=== PATIENT | male | born 1975 | race Caucasian/White ===

== ENCOUNTER 2017-12-21 14:14 | Inpatient (IN) | END 2017-12-28 19:20 | disposition home health service (06) | DRG 100 ==

== ENCOUNTER 2019-05-16 15:33 | Inpatient (IN) | payer OTHER ==
[2019-05-16] VITALS (12 sets, daily range): BP systolic 106–143; BP diastolic 82–96; PULSE 72–122; RESP 12–21; Ht 172.7 cm; Wt 50.1 kg
[~2019-05-16] VITALS: Ht 172.7 cm; Wt 50.1 kg
[~2019-05-16 15:33] MED LIST: ACET100V3 NEB; ASC500 GTB; BACL20TA G-TUBE; BACL20TA GTB; DOCU50LI11 G-TUBE; GABA250S2 G-TUBE; GABA250S2 GTB; IBUP-1541 G-TUBE; IPRA3AMP29 INHALATION; LORA-441 PO; LORA10CA G-TUBE; LORA10TA3 GTB; LORA1TAB GTB; MAGN400O19 G-TUBE; MORP-58 PEG; MORP10DI10 GTB; MORP10DI10 SL; MUCO4 NEB; MUPI22OI2 SUBDERMAL; NYST15CR28 TOP; OMEP20CA17 GTB; PHEN32.46 GTB; PHEN32.46 PO; RANI15SY GTB; RISP0.2553 G-TUBE; RISP1TAB3 GTB; SAN30GM TOP; TIZA4TAB2 G-TUBE; TIZA4TAB2 GTB; TOLN45PO2 SUBD; TOLT2TAB5 GTB; TRAZ150T65 G-TUBE; TRAZ150T65 GTB; ZINC220C5 GTB; ZONI100C48 G-TUBE; ZONI100C48 GTB; [UNRECOGNIZED DRUG - CODE] IH; [UNRECOGNIZED DRUG - CODE] SUBDERMAL
[2019-05-16] MEDS ORDERED: SODIUM CHLORIDE 0.9% 1L BAG IV* STA (15:44)
[2019-05-16] MEDS ORDERED: VANCOMYCIN 1 GM (PMX) 250 ML IVPB ONE (16:00)
[2019-05-16] MEDS ORDERED: AZTREONAM 1 GM/NS (PMX) 50 ML IVPB ONE (16:00)
[2019-05-16] MEDS ORDERED: ONDANSETRON 4 MG INJ IV PRN ×2 (18:00→19:30)
[2019-05-16] MEDS ORDERED: morphine 2 MG INJ IV PRN (19:30)
[2019-05-16] MEDS ORDERED: NACL 0.9% 3 ML SYG IV SCH (19:30)
[2019-05-16] MEDS ORDERED: TIZANIDINE 4 MG TAB GTB PRN (19:30)
[2019-05-16] MEDS ORDERED: OMEPRAZOLE GTB PRN (19:30)
[2019-05-16] MEDS ORDERED: LACTATED RINGER'S 1,000 ML IV ONE (20:00)
[2019-05-16] MEDS ORDERED: VANCOMYCIN IV PER PHARMACY XX SCH (20:00)
[2019-05-16] MEDS ORDERED: LANSOPRAZOLE (SOLTAB) 30 MG TAB GTB PRN (20:30)
[2019-05-16] MEDS: IPRATROPIUM (NEB) 0.5 MG/2.5 ML AMP INH SCH (21:00)
[2019-05-16] MEDS ORDERED: PHENOBARBITAL 32.4 MG TAB GTB SCH ×3 (21:30→22:00)
[2019-05-16] MEDS: MUPIROCIN 2% 22 GM OINT TOP SCH (21:34)
[2019-05-16] MEDS: TOLTERODINE 2 MG TAB GTB SCH (21:34)
[2019-05-16] MEDS: GABAPENTIN 300 MG/6 ML GTB SCH (21:34)
[2019-05-16] MEDS: SOD CHLORIDE 0.9% 1,000 ML IV SCH (21:35)
[2019-05-16] MEDS: DOCUSATE SODIUM 10 MG/ML (10ML CUP) GTB SCH (21:39)
[2019-05-16] MEDS: BACLOFEN 10 MG TAB GTB SCH (21:39)
[2019-05-16] MEDS: LORAZEPAM 0.5 MG TAB GTB SCH (23:01)
[2019-05-16] MEDS: PHENOBARBITAL 32.4 MG TAB GTB SCH (23:50)
[2019-05-17] VITALS (95 sets, daily range): BP systolic 71–140; BP diastolic 41–88; PULSE 0–104; RESP 10–76
[2019-05-17] MEDS ORDERED: HYDROmorphONE 0.5 MG/0.5 ML SYG IV STA (04:09)
[2019-05-17] MEDS: AZTREONAM 1 GM/NS (PMX) 50 ML IVPB SCH ×2 (04:28→08:54)
[2019-05-17] MEDS: BACLOFEN 10 MG TAB GTB SCH ×2 (05:48→15:03)
[2019-05-17] MEDS: VANCOMYCIN 750 MG (PMX) 250 ML IVPB SCH ×2 (05:48→18:33)
[2019-05-17] MEDS ORDERED: MAGNESIUM SULFATE 3 GM in DEXTROSE 5% 100 ML IVPB ONE (07:30)
[2019-05-17] MEDS: GABAPENTIN 300 MG/6 ML GTB SCH ×2 (08:38→15:01)
[2019-05-17] MEDS: TOLTERODINE 2 MG TAB GTB SCH ×2 (08:39→21:53)
[2019-05-17] MEDS: LORAZEPAM 0.5 MG TAB GTB SCH ×2 (08:39→21:52)
[2019-05-17] MEDS: LORATADINE 10 MG TAB GTB SCH (08:39)
[2019-05-17] MEDS: MUPIROCIN 2% 22 GM OINT TOP SCH ×2 (08:40→21:55)
[2019-05-17] MEDS: ENOXAPARIN 40 MG/0.4 ML SYG SC SCH (08:41)
[2019-05-17] MEDS: DOCUSATE SODIUM 10 MG/ML (10ML CUP) GTB SCH ×2 (08:42→21:53)
[2019-05-17] MEDS ORDERED: PHENOBARBITAL 32.4 MG TAB GTB SCH (09:00)
[2019-05-17] MEDS: IPRATROPIUM (NEB) 0.5 MG/2.5 ML AMP INH SCH (09:00)
[2019-05-17] MEDS ORDERED: MAGNESIUM SULFATE 2 GM/50 ML 50 ML IVPB ONE (09:30)
[2019-05-17] MEDS: SOD CHLORIDE 0.9% 1,000 ML IV SCH (10:29)
[2019-05-17] MEDS: PHENOBARBITAL 32.4 MG TAB GTB SCH ×2 (10:42→21:54)
[2019-05-17] MEDS: IPRATROPIUM (HFA) 12.9 GM INHALER INH SCH ×2 (13:20→17:22)
[2019-05-17] MEDS ORDERED: MEROPENEM 1 GM/50ML(PMX) 50 ML IVPB SCH (13:30)
[2019-05-17] MEDS ORDERED: AMIKACIN IV PER PHARMACY XX SCH (14:00)
[2019-05-17] MEDS ORDERED: LACTATED RINGER'S 1,000 ML IV ONE (16:00)
[2019-05-17] MEDS ORDERED: AMIKACIN 750 MG in SOD CHLORIDE 0.9% 100 ML IVPB SCH (16:00)
[2019-05-17] MEDS: ZONISAMIDE 100 MG CAP GTB SCH ×2 (16:30→21:54)
[2019-05-17] MEDS ORDERED: PHENOBARBITAL 32.4 MG TAB PO SCH (21:00)
[2019-05-18] VITALS (107 sets, daily range): BP systolic 79–131; BP diastolic 52–98; PULSE 0–98; RESP 13–46
[2019-05-18] MEDS: BACLOFEN 10 MG TAB GTB SCH ×4 (01:04→21:12)
[2019-05-18] MEDS: GABAPENTIN 300 MG/6 ML GTB SCH ×4 (01:05→21:12)
[2019-05-18] MEDS: SOD CHLORIDE 0.9% 1,000 ML IV SCH ×2 (01:06→21:56)
[2019-05-18] MEDS: VANCOMYCIN 750 MG (PMX) 250 ML IVPB SCH (05:35)
[2019-05-18] MEDS ORDERED: POTASSIUM CHLORIDE 20 MEQ POWDER FOR ORAL SOLN PO ONE (09:30)
[2019-05-18] MEDS: TOLTERODINE 2 MG TAB GTB SCH ×2 (09:31→21:11)
[2019-05-18] MEDS: ZONISAMIDE 100 MG CAP GTB SCH ×3 (09:31→21:12)
[2019-05-18] MEDS: THIAMINE 100 MG TAB GTB SCH (09:31)
[2019-05-18] MEDS: LORAZEPAM 0.5 MG TAB GTB SCH ×2 (09:31→21:11)
[2019-05-18] MEDS: MUPIROCIN 2% 22 GM OINT TOP SCH ×2 (09:31→21:12)
[2019-05-18] MEDS: LORATADINE 10 MG TAB GTB SCH (09:32)
[2019-05-18] MEDS: ZINC SULFATE 220 MG CAP GTB SCH (09:32)
[2019-05-18] MEDS: ASCORBIC ACID 500 MG TAB GTB SCH (09:32)
[2019-05-18] MEDS: PHENOBARBITAL 32.4 MG TAB GTB SCH ×2 (09:32→21:12)
[2019-05-18] MEDS: ENOXAPARIN 40 MG/0.4 ML SYG SC SCH (09:39)
[2019-05-18] MEDS: COLLAGENASE 5 GM (UD JAR) TOP SCH (11:57)
[2019-05-18] MEDS: DOCUSATE SODIUM 10 MG/ML (10ML CUP) GTB SCH ×2 (11:57→21:11)
[2019-05-18] MEDS: morphine LIQ (10 MG/5 ML) CUP PO PRN (11:57)
[2019-05-18] MEDS: IPRATROPIUM (HFA) 12.9 GM INHALER INH SCH ×3 (13:26→17:09)
[2019-05-18] MEDS: CLINDAMYCIN 900 MG (PMX) 50 ML IVPB SCH ×2 (13:38→21:13)
[2019-05-18] MEDS: AMIKACIN IVPB SCH (15:38)
[2019-05-18] MEDS: SOD CHLORIDE 0.9% IVPB SCH (15:38)
[2019-05-18] MEDS: LORAZEPAM 2 MG INJ IV PRN (21:29)
[2019-05-18] MEDS: ALBUMIN HUMAN 25% 100 ML IV SCH (21:57)
[2019-05-19] VITALS (87 sets, daily range): BP systolic 81–130; BP diastolic 54–77; PULSE 75–109; RESP 10–20
[2019-05-19] MEDS: ALBUMIN HUMAN 25% 100 ML IV SCH (00:15)
[2019-05-19] MEDS: morphine LIQ (10 MG/5 ML) CUP PO PRN ×4 (03:13→18:20)
[2019-05-19] MEDS: BACLOFEN 10 MG TAB GTB SCH ×3 (05:34→22:50)
[2019-05-19] MEDS: CLINDAMYCIN 900 MG (PMX) 50 ML IVPB SCH ×3 (05:35→22:50)
[2019-05-19] MEDS: GABAPENTIN 300 MG/6 ML GTB SCH ×3 (05:35→22:50)
[2019-05-19] MEDS: COLLAGENASE 5 GM (UD JAR) TOP SCH (08:19)
[2019-05-19] MEDS: DOCUSATE SODIUM 10 MG/ML (10ML CUP) GTB SCH ×2 (08:19→20:42)
[2019-05-19] MEDS: MUPIROCIN 2% 22 GM OINT TOP SCH ×2 (08:20→20:44)
[2019-05-19] MEDS: PHENOBARBITAL 32.4 MG TAB GTB SCH ×2 (08:20→20:44)
[2019-05-19] MEDS: THIAMINE 100 MG TAB GTB SCH (08:20)
[2019-05-19] MEDS: ASCORBIC ACID 500 MG TAB GTB SCH (08:20)
[2019-05-19] MEDS: TOLTERODINE 2 MG TAB GTB SCH ×2 (08:20→20:43)
[2019-05-19] MEDS: ZINC SULFATE 220 MG CAP GTB SCH (08:20)
[2019-05-19] MEDS: LORATADINE 10 MG TAB GTB SCH (08:20)
[2019-05-19] MEDS: LORAZEPAM 0.5 MG TAB GTB SCH ×2 (08:20→20:44)
[2019-05-19] MEDS: ZONISAMIDE 100 MG CAP GTB SCH ×3 (08:21→20:43)
[2019-05-19] MEDS: IPRATROPIUM (HFA) 12.9 GM INHALER INH SCH ×3 (08:39→20:52)
[2019-05-19] MEDS: SOD CHLORIDE 0.9% 1,000 ML IV SCH ×2 (10:33→22:52)
[2019-05-19] MEDS ORDERED: POTASSIUM CHLORIDE 20 MEQ POWDER FOR ORAL SOLN PO ONE (11:00)
[2019-05-19] MEDS: AMIKACIN IVPB SCH (15:15)
[2019-05-19] MEDS: SOD CHLORIDE 0.9% IVPB SCH (15:15)
[2019-05-19] MEDS: MAGNESIUM SULFATE 1 GM/D5W 100 ML IV SCH ×3 (20:43→22:49)
[2019-05-20] VITALS (35 sets, daily range): BP systolic 99–143; BP diastolic 59–81; PULSE 62–106; RESP 10–31
[2019-05-20] MEDS: IPRATROPIUM (HFA) 12.9 GM INHALER INH SCH ×3 (01:23→19:35)
[2019-05-20] MEDS: morphine LIQ (10 MG/5 ML) CUP PO PRN ×2 (02:12→23:50)
[2019-05-20] MEDS ORDERED: POTASSIUM CHLORIDE 100 ML IVPB ONE (03:55)
[2019-05-20] MEDS: CLINDAMYCIN 900 MG (PMX) 50 ML IVPB SCH ×3 (06:01→21:50)
[2019-05-20] MEDS: GABAPENTIN 300 MG/6 ML GTB SCH ×2 (06:02→13:47)
[2019-05-20] MEDS: BACLOFEN 10 MG TAB GTB SCH ×3 (06:02→21:38)
[2019-05-20] MEDS: LORAZEPAM 0.5 MG TAB GTB SCH ×2 (08:42→21:50)
[2019-05-20] MEDS: ZINC SULFATE 220 MG CAP GTB SCH (08:42)
[2019-05-20] MEDS: ZONISAMIDE 100 MG CAP GTB SCH ×3 (08:43→21:38)
[2019-05-20] MEDS: LORATADINE 10 MG TAB GTB SCH (08:43)
[2019-05-20] MEDS: THIAMINE 100 MG TAB GTB SCH (08:43)
[2019-05-20] MEDS: TOLTERODINE 2 MG TAB GTB SCH ×2 (08:43→21:39)
[2019-05-20] MEDS: ASCORBIC ACID 500 MG TAB GTB SCH (08:43)
[2019-05-20] MEDS: COLLAGENASE 5 GM (UD JAR) TOP SCH (08:44)
[2019-05-20] MEDS: MUPIROCIN 2% 22 GM OINT TOP SCH ×2 (08:44→21:39)
[2019-05-20] MEDS: DOCUSATE SODIUM 10 MG/ML (10ML CUP) GTB SCH ×2 (08:44→21:50)
[2019-05-20] MEDS: PHENOBARBITAL 32.4 MG TAB GTB SCH ×2 (08:49→22:59)
[2019-05-20] MEDS: LORAZEPAM 2 MG INJ IV PRN (08:59)
[2019-05-20] MEDS ORDERED: POTASSIUM PHOSPHATE 30 MM in SOD CHLORIDE 0.9% 250 ML IVPB ONE (12:30)
[2019-05-20] MEDS: SOD CHLORIDE 0.9% 1,000 ML IV SCH (13:48)
[2019-05-20] MEDS: AMIKACIN IVPB SCH (16:41)
[2019-05-20] MEDS: SOD CHLORIDE 0.9% IVPB SCH (16:41)
[2019-05-20] MEDS: ACETAMINOPHEN 650MG/20.3ML CUP GTB PRN (22:59)
[2019-05-21] VITALS (21 sets, daily range): BP systolic 98–115; BP diastolic 59–72; PULSE 95–113; RESP 10–25
[2019-05-21] MEDS: GABAPENTIN 300 MG/6 ML GTB SCH ×4 (00:16→21:19)
[2019-05-21] MEDS: IPRATROPIUM (HFA) 12.9 GM INHALER INH SCH ×4 (01:33→20:31)
[2019-05-21] MEDS: SOD CHLORIDE 0.9% 1,000 ML IV SCH (02:58)
[2019-05-21] MEDS: ACETAMINOPHEN 650MG/20.3ML CUP GTB PRN ×2 (04:46→08:56)
[2019-05-21] MEDS: BACLOFEN 10 MG TAB GTB SCH ×3 (06:33→21:17)
[2019-05-21] MEDS: CLINDAMYCIN 900 MG (PMX) 50 ML IVPB SCH ×3 (06:34→21:19)
[2019-05-21] MEDS: morphine LIQ (10 MG/5 ML) CUP PO PRN ×3 (06:44→20:39)
[2019-05-21] MEDS: DOCUSATE SODIUM 10 MG/ML (10ML CUP) GTB SCH ×2 (08:53→21:17)
[2019-05-21] MEDS: ZINC SULFATE 220 MG CAP GTB SCH (08:56)
[2019-05-21] MEDS: THIAMINE 100 MG TAB GTB SCH (08:56)
[2019-05-21] MEDS: ASCORBIC ACID 500 MG TAB GTB SCH (08:56)
[2019-05-21] MEDS: LORATADINE 10 MG TAB GTB SCH (08:56)
[2019-05-21] MEDS: MUPIROCIN 2% 22 GM OINT TOP SCH ×2 (08:57→21:31)
[2019-05-21] MEDS: COLLAGENASE 5 GM (UD JAR) TOP SCH (08:57)
[2019-05-21] MEDS: LORAZEPAM 0.5 MG TAB GTB SCH ×2 (09:04→21:18)
[2019-05-21] MEDS: TOLTERODINE 2 MG TAB GTB SCH ×2 (10:30→21:18)
[2019-05-21] MEDS: ZONISAMIDE 100 MG CAP GTB SCH ×3 (10:30→21:18)
[2019-05-21] MEDS: PHENOBARBITAL 32.4 MG TAB GTB SCH ×2 (10:53→21:31)
[2019-05-21] MEDS: AMIKACIN IVPB SCH (15:39)
[2019-05-21] MEDS: SOD CHLORIDE 0.9% IVPB SCH (15:39)
[2019-05-21] MEDS ORDERED: CASPOFUNGIN 50 MG in SOD CHLORIDE 0.9% 250 ML IVPB SCH (17:00)
[2019-05-21] MEDS ORDERED: CASPOFUNGIN 70 MG in SOD CHLORIDE 0.9% 250 ML IVPB ONE (17:00)
[2019-05-21] MEDS: LORAZEPAM 2 MG INJ IV PRN ×2 (17:12→23:42)
[2019-05-22] VITALS (17 sets, daily range): BP systolic 110–157; BP diastolic 57–84; PULSE 67–100; RESP 14–20
[2019-05-22] MEDS: IPRATROPIUM (HFA) 12.9 GM INHALER INH SCH ×4 (01:17→20:32)
[2019-05-22] MEDS: GABAPENTIN 300 MG/6 ML GTB SCH ×3 (05:48→21:12)
[2019-05-22] MEDS: morphine LIQ (10 MG/5 ML) CUP PO PRN ×3 (05:48→21:48)
[2019-05-22] MEDS: BACLOFEN 10 MG TAB GTB SCH ×3 (05:48→21:13)
[2019-05-22] MEDS: CLINDAMYCIN 900 MG (PMX) 50 ML IVPB SCH ×3 (05:48→21:13)
[2019-05-22] MEDS: LORATADINE 10 MG TAB GTB SCH (08:20)
[2019-05-22] MEDS: DOCUSATE SODIUM 10 MG/ML (10ML CUP) GTB SCH ×2 (08:20→21:12)
[2019-05-22] MEDS: PHENOBARBITAL 32.4 MG TAB GTB SCH ×2 (08:20→21:13)
[2019-05-22] MEDS: ZINC SULFATE 220 MG CAP GTB SCH (08:21)
[2019-05-22] MEDS: THIAMINE 100 MG TAB GTB SCH (08:21)
[2019-05-22] MEDS: ASCORBIC ACID 500 MG TAB GTB SCH (08:21)
[2019-05-22] MEDS: TOLTERODINE 2 MG TAB GTB SCH ×2 (08:21→21:13)
[2019-05-22] MEDS: ZONISAMIDE 100 MG CAP GTB SCH ×3 (08:21→21:13)
[2019-05-22] MEDS: COLLAGENASE 5 GM (UD JAR) TOP SCH (08:21)
[2019-05-22] MEDS: MUPIROCIN 2% 22 GM OINT TOP SCH ×2 (08:21→21:13)
[2019-05-22] MEDS: LORAZEPAM 0.5 MG TAB GTB SCH ×2 (08:37→21:13)
[2019-05-22] MEDS ORDERED: LIDOCAINE 1%/EPI (1:100,000) (MDV) 20 ML ONE (11:38)
[2019-05-22] MEDS: AMIKACIN IVPB SCH (15:05)
[2019-05-22] MEDS: SOD CHLORIDE 0.9% IVPB SCH (15:05)
[2019-05-22] MEDS: CASPOFUNGIN 50 MG in SOD CHLORIDE 0.9% 250 ML IVPB SCH (17:35)
[2019-05-22] MEDS: LORAZEPAM 2 MG INJ IV PRN (23:46)
[2019-05-23] VITALS (18 sets, daily range): BP systolic 110–122; BP diastolic 58–69; PULSE 62–82; RESP 14–20
[2019-05-23] MEDS: IPRATROPIUM (HFA) 12.9 GM INHALER INH SCH ×4 (01:17→20:34)
[2019-05-23] MEDS: morphine LIQ (10 MG/5 ML) CUP PO PRN ×3 (02:09→21:24)
[2019-05-23] MEDS: GABAPENTIN 300 MG/6 ML GTB SCH ×3 (05:07→21:23)
[2019-05-23] MEDS: CLINDAMYCIN 900 MG (PMX) 50 ML IVPB SCH ×3 (05:08→21:25)
[2019-05-23] MEDS: BACLOFEN 10 MG TAB GTB SCH ×3 (05:08→21:22)
[2019-05-23] MEDS: LORATADINE 10 MG TAB GTB SCH (09:53)
[2019-05-23] MEDS: DOCUSATE SODIUM 10 MG/ML (10ML CUP) GTB SCH ×2 (09:53→21:24)
[2019-05-23] MEDS: THIAMINE 100 MG TAB GTB SCH (09:53)
[2019-05-23] MEDS: TOLTERODINE 2 MG TAB GTB SCH ×2 (09:53→21:21)
[2019-05-23] MEDS: ZINC SULFATE 220 MG CAP GTB SCH (09:53)
[2019-05-23] MEDS: MUPIROCIN 2% 22 GM OINT TOP SCH ×2 (09:53→21:25)
[2019-05-23] MEDS: ASCORBIC ACID 500 MG TAB GTB SCH (09:53)
[2019-05-23] MEDS: COLLAGENASE 5 GM (UD JAR) TOP SCH (09:53)
[2019-05-23] MEDS: ZONISAMIDE 100 MG CAP GTB SCH ×3 (09:53→21:22)
[2019-05-23] MEDS: PHENOBARBITAL 32.4 MG TAB GTB SCH ×2 (09:58→21:23)
[2019-05-23] MEDS: LORAZEPAM 0.5 MG TAB GTB SCH ×2 (09:59→21:23)
[2019-05-23] MEDS: SOD CHLORIDE 0.9% IVPB SCH (15:55)
[2019-05-23] MEDS: AMIKACIN IVPB SCH (15:55)
[2019-05-23] MEDS ORDERED: MAGNESIUM SULFATE 2 GM/50 ML 50 ML IVPB ONE (18:00)
[2019-05-23] MEDS: CASPOFUNGIN 50 MG in SOD CHLORIDE 0.9% 250 ML IVPB SCH (20:09)
[2019-05-24] VITALS (18 sets, daily range): BP systolic 107–118; BP diastolic 59–68; PULSE 65–84; RESP 14–22
[2019-05-24] MEDS: IPRATROPIUM (HFA) 12.9 GM INHALER INH SCH ×4 (01:56→20:02)
[2019-05-24] MEDS: morphine LIQ (10 MG/5 ML) CUP PO PRN ×2 (04:05→12:03)
[2019-05-24] MEDS: BACLOFEN 10 MG TAB GTB SCH ×3 (05:43→21:01)
[2019-05-24] MEDS: GABAPENTIN 300 MG/6 ML GTB SCH ×3 (05:44→21:01)
[2019-05-24] MEDS: CLINDAMYCIN 900 MG (PMX) 50 ML IVPB SCH ×3 (05:53→21:54)
[2019-05-24] MEDS: ZONISAMIDE 100 MG CAP GTB SCH ×3 (10:35→23:18)
[2019-05-24] MEDS: THIAMINE 100 MG TAB GTB SCH (10:35)
[2019-05-24] MEDS: LORATADINE 10 MG TAB GTB SCH (10:35)
[2019-05-24] MEDS: DOCUSATE SODIUM 10 MG/ML (10ML CUP) GTB SCH ×2 (10:35→21:01)
[2019-05-24] MEDS: TOLTERODINE 2 MG TAB GTB SCH ×2 (10:36→21:01)
[2019-05-24] MEDS: ZINC SULFATE 220 MG CAP GTB SCH (10:36)
[2019-05-24] MEDS: PHENOBARBITAL 32.4 MG TAB GTB SCH ×2 (10:36→21:02)
[2019-05-24] MEDS: LORAZEPAM 0.5 MG TAB GTB SCH ×2 (10:36→21:02)
[2019-05-24] MEDS: ASCORBIC ACID 500 MG TAB GTB SCH (10:36)
[2019-05-24] MEDS: COLLAGENASE 5 GM (UD JAR) TOP SCH (10:37)
[2019-05-24] MEDS: MUPIROCIN 2% 22 GM OINT TOP SCH ×2 (10:37→21:32)
[2019-05-24] MEDS: SOD CHLORIDE 0.9% IVPB SCH (15:46)
[2019-05-24] MEDS: AMIKACIN IVPB SCH (15:46)
[2019-05-24] MEDS: CASPOFUNGIN 50 MG in SOD CHLORIDE 0.9% 250 ML IVPB SCH (18:58)
[2019-05-25] VITALS (19 sets, daily range): BP systolic 90–121; BP diastolic 51–88; PULSE 68–96; RESP 10–29
[2019-05-25] MEDS: morphine LIQ (10 MG/5 ML) CUP PO PRN ×3 (01:47→20:51)
[2019-05-25] MEDS: IPRATROPIUM (HFA) 12.9 GM INHALER INH SCH ×4 (01:52→19:50)
[2019-05-25] MEDS: GABAPENTIN 300 MG/6 ML GTB SCH ×3 (05:56→21:50)
[2019-05-25] MEDS: BACLOFEN 10 MG TAB GTB SCH ×3 (05:56→21:51)
[2019-05-25] MEDS: CLINDAMYCIN 900 MG (PMX) 50 ML IVPB SCH ×3 (05:57→21:51)
[2019-05-25] MEDS: MUPIROCIN 2% 22 GM OINT TOP SCH ×2 (08:32→20:51)
[2019-05-25] MEDS: COLLAGENASE 5 GM (UD JAR) TOP SCH (08:32)
[2019-05-25] MEDS: ZINC SULFATE 220 MG CAP GTB SCH (08:34)
[2019-05-25] MEDS: DOCUSATE SODIUM 10 MG/ML (10ML CUP) GTB SCH ×2 (08:34→20:47)
[2019-05-25] MEDS: ZONISAMIDE 100 MG CAP GTB SCH ×3 (08:35→20:49)
[2019-05-25] MEDS: THIAMINE 100 MG TAB GTB SCH (08:36)
[2019-05-25] MEDS: TOLTERODINE 2 MG TAB GTB SCH ×2 (08:36→20:46)
[2019-05-25] MEDS: LORAZEPAM 0.5 MG TAB GTB SCH ×2 (08:37→20:50)
[2019-05-25] MEDS: PHENOBARBITAL 32.4 MG TAB GTB SCH ×2 (08:37→20:50)
[2019-05-25] MEDS: LORATADINE 10 MG TAB GTB SCH (08:37)
[2019-05-25] MEDS: ASCORBIC ACID 500 MG TAB GTB SCH (08:37)
[2019-05-25] MEDS ORDERED: FLUCONAZOLE 200 MG TAB PO SCH (12:00)
[2019-05-25] MEDS: AMIKACIN IVPB SCH (17:52)
[2019-05-25] MEDS: SOD CHLORIDE 0.9% IVPB SCH (17:52)
[2019-05-26] VITALS (20 sets, daily range): BP systolic 95–138; BP diastolic 52–64; PULSE 74–90; RESP 11–24
[2019-05-26] MEDS: IPRATROPIUM (HFA) 12.9 GM INHALER INH SCH ×4 (01:57→19:42)
[2019-05-26] MEDS: morphine LIQ (10 MG/5 ML) CUP PO PRN ×2 (02:06→20:11)
[2019-05-26] MEDS: CLINDAMYCIN 900 MG (PMX) 50 ML IVPB SCH ×3 (05:16→21:22)
[2019-05-26] MEDS: BACLOFEN 10 MG TAB GTB SCH ×3 (05:16→21:16)
[2019-05-26] MEDS: GABAPENTIN 300 MG/6 ML GTB SCH ×3 (05:16→21:16)
[2019-05-26] MEDS: PHENOBARBITAL 32.4 MG TAB GTB SCH ×2 (09:48→20:10)
[2019-05-26] MEDS: LORAZEPAM 0.5 MG TAB GTB SCH ×2 (09:49→20:09)
[2019-05-26] MEDS: ZONISAMIDE 100 MG CAP GTB SCH ×3 (09:49→20:08)
[2019-05-26] MEDS: ZINC SULFATE 220 MG CAP GTB SCH (09:49)
[2019-05-26] MEDS: TOLTERODINE 2 MG TAB GTB SCH ×2 (09:49→20:08)
[2019-05-26] MEDS: LORATADINE 10 MG TAB GTB SCH (09:49)
[2019-05-26] MEDS: THIAMINE 100 MG TAB GTB SCH (09:49)
[2019-05-26] MEDS: ASCORBIC ACID 500 MG TAB GTB SCH (09:49)
[2019-05-26] MEDS: DOCUSATE SODIUM 10 MG/ML (10ML CUP) GTB SCH ×2 (09:50→20:08)
[2019-05-26] MEDS: COLLAGENASE 5 GM (UD JAR) TOP SCH (09:50)
[2019-05-26] MEDS: CASPOFUNGIN 50 MG in SOD CHLORIDE 0.9% 250 ML IVPB SCH (09:55)
[2019-05-26] MEDS: MUPIROCIN 2% 22 GM OINT TOP SCH ×2 (09:56→20:10)
[2019-05-26] MEDS: SOD CHLORIDE 0.9% IVPB SCH (16:43)
[2019-05-26] MEDS: AMIKACIN IVPB SCH (16:43)
[2019-05-26] MEDS: FUROSEMIDE 40 MG INJ IV SCH (18:16)
[2019-05-27] VITALS (21 sets, daily range): BP systolic 80–115; BP diastolic 48–60; PULSE 79–100; RESP 10–22
[2019-05-27] MEDS ORDERED: ZOLPIDEM 5 MG TAB PO ONE ×2 (00:28→23:55)
[2019-05-27] MEDS: morphine LIQ (10 MG/5 ML) CUP PO PRN ×3 (00:38→21:16)
[2019-05-27] MEDS: IPRATROPIUM (HFA) 12.9 GM INHALER INH SCH ×4 (01:42→20:17)
[2019-05-27] MEDS: GABAPENTIN 300 MG/6 ML GTB SCH ×3 (05:58→21:13)
[2019-05-27] MEDS: BACLOFEN 10 MG TAB GTB SCH ×3 (05:58→21:12)
[2019-05-27] MEDS: CLINDAMYCIN 900 MG (PMX) 50 ML IVPB SCH ×3 (05:59→21:16)
[2019-05-27] MEDS: THIAMINE 100 MG TAB GTB SCH (09:57)
[2019-05-27] MEDS: ASCORBIC ACID 500 MG TAB GTB SCH (09:57)
[2019-05-27] MEDS: CASPOFUNGIN 50 MG in SOD CHLORIDE 0.9% 250 ML IVPB SCH (09:57)
[2019-05-27] MEDS: LORATADINE 10 MG TAB GTB SCH (09:57)
[2019-05-27] MEDS: DOCUSATE SODIUM 10 MG/ML (10ML CUP) GTB SCH ×2 (09:57→21:13)
[2019-05-27] MEDS: LORAZEPAM 0.5 MG TAB GTB SCH ×2 (09:57→21:14)
[2019-05-27] MEDS: PHENOBARBITAL 32.4 MG TAB GTB SCH ×2 (09:57→21:15)
[2019-05-27] MEDS: TOLTERODINE 2 MG TAB GTB SCH ×2 (09:57→21:12)
[2019-05-27] MEDS: MUPIROCIN 2% 22 GM OINT TOP SCH ×2 (09:58→21:17)
[2019-05-27] MEDS: FUROSEMIDE 40 MG INJ IV SCH (09:58)
[2019-05-27] MEDS: ZONISAMIDE 100 MG CAP GTB SCH ×3 (09:58→21:14)
[2019-05-27] MEDS: COLLAGENASE 5 GM (UD JAR) TOP SCH (09:58)
[2019-05-27] MEDS: ZINC SULFATE 220 MG CAP GTB SCH (09:58)
[2019-05-27] MEDS: ACETAMINOPHEN 650MG/20.3ML CUP GTB PRN (13:16)
[2019-05-28] VITALS (18 sets, daily range): BP systolic 87–109; BP diastolic 50–61; PULSE 70–97; RESP 16–21
[2019-05-28] MEDS: IPRATROPIUM (HFA) 12.9 GM INHALER INH SCH ×4 (01:58→19:55)
[2019-05-28] MEDS: GABAPENTIN 300 MG/6 ML GTB SCH ×3 (05:35→21:14)
[2019-05-28] MEDS: BACLOFEN 10 MG TAB GTB SCH ×3 (05:36→21:13)
[2019-05-28] MEDS: CLINDAMYCIN 900 MG (PMX) 50 ML IVPB SCH ×3 (05:36→21:14)
[2019-05-28] MEDS: morphine LIQ (10 MG/5 ML) CUP PO PRN ×2 (06:40→15:17)
[2019-05-28] MEDS: COLLAGENASE 5 GM (UD JAR) TOP SCH (09:33)
[2019-05-28] MEDS: CASPOFUNGIN 50 MG in SOD CHLORIDE 0.9% 250 ML IVPB SCH (09:33)
[2019-05-28] MEDS: DOCUSATE SODIUM 10 MG/ML (10ML CUP) GTB SCH ×2 (09:33→21:15)
[2019-05-28] MEDS: ASCORBIC ACID 500 MG TAB GTB SCH (09:34)
[2019-05-28] MEDS: TOLTERODINE 2 MG TAB GTB SCH ×2 (09:34→21:13)
[2019-05-28] MEDS: ZONISAMIDE 100 MG CAP GTB SCH ×3 (09:34→21:13)
[2019-05-28] MEDS: LORAZEPAM 0.5 MG TAB GTB SCH ×2 (09:34→21:13)
[2019-05-28] MEDS: LORATADINE 10 MG TAB GTB SCH (09:34)
[2019-05-28] MEDS: ZINC SULFATE 220 MG CAP GTB SCH (09:34)
[2019-05-28] MEDS: THIAMINE 100 MG TAB GTB SCH (09:34)
[2019-05-28] MEDS: PHENOBARBITAL 32.4 MG TAB GTB SCH ×2 (09:34→21:14)
[2019-05-28] MEDS: MUPIROCIN 2% 22 GM OINT TOP SCH ×2 (09:35→21:15)
[2019-05-28] MEDS: FUROSEMIDE 40 MG INJ IV SCH (09:35)
[2019-05-29] VITALS (20 sets, daily range): BP systolic 81–113; BP diastolic 42–60; PULSE 78–95; RESP 15–22
[2019-05-29] MEDS: IPRATROPIUM (HFA) 12.9 GM INHALER INH SCH ×4 (01:10→19:57)
[2019-05-29] MEDS: morphine LIQ (10 MG/5 ML) CUP PO PRN ×3 (02:31→23:03)
[2019-05-29] MEDS: GABAPENTIN 300 MG/6 ML GTB SCH ×3 (06:12→21:47)
[2019-05-29] MEDS: BACLOFEN 10 MG TAB GTB SCH ×3 (06:12→21:46)
[2019-05-29] MEDS: ACETAMINOPHEN 650MG/20.3ML CUP GTB PRN (06:12)
[2019-05-29] MEDS: CLINDAMYCIN 900 MG (PMX) 50 ML IVPB SCH ×3 (06:12→21:49)
[2019-05-29] MEDS: MUPIROCIN 2% 22 GM OINT TOP SCH ×2 (09:20→21:49)
[2019-05-29] MEDS: DOCUSATE SODIUM 10 MG/ML (10ML CUP) GTB SCH ×2 (09:22→21:47)
[2019-05-29] MEDS: ZONISAMIDE 100 MG CAP GTB SCH ×3 (09:22→21:46)
[2019-05-29] MEDS: TOLTERODINE 2 MG TAB GTB SCH ×2 (09:22→21:46)
[2019-05-29] MEDS: COLLAGENASE 5 GM (UD JAR) TOP SCH (09:22)
[2019-05-29] MEDS: ZINC SULFATE 220 MG CAP GTB SCH (09:23)
[2019-05-29] MEDS: LORATADINE 10 MG TAB GTB SCH (09:23)
[2019-05-29] MEDS: FUROSEMIDE 40 MG INJ IV SCH (09:23)
[2019-05-29] MEDS: ASCORBIC ACID 500 MG TAB GTB SCH (09:23)
[2019-05-29] MEDS: THIAMINE 100 MG TAB GTB SCH (09:23)
[2019-05-29] MEDS: CASPOFUNGIN 50 MG in SOD CHLORIDE 0.9% 250 ML IVPB SCH (09:35)
[2019-05-29] MEDS: PHENOBARBITAL 32.4 MG TAB GTB SCH ×2 (09:35→21:46)
[2019-05-29] MEDS: LORAZEPAM 0.5 MG TAB GTB SCH ×2 (09:35→21:47)
[2019-05-30] VITALS (16 sets, daily range): BP systolic 88–123; BP diastolic 51–64; PULSE 61–86; RESP 14–22
[2019-05-30] MEDS: IPRATROPIUM (HFA) 12.9 GM INHALER INH SCH ×4 (01:13→19:54)
[2019-05-30] MEDS: CLINDAMYCIN 900 MG (PMX) 50 ML IVPB SCH ×3 (06:22→22:05)
[2019-05-30] MEDS: BACLOFEN 10 MG TAB GTB SCH ×3 (06:23→22:07)
[2019-05-30] MEDS: GABAPENTIN 300 MG/6 ML GTB SCH ×3 (06:23→22:05)
[2019-05-30] MEDS: CASPOFUNGIN 50 MG in SOD CHLORIDE 0.9% 250 ML IVPB SCH (09:35)
[2019-05-30] MEDS: COLLAGENASE 5 GM (UD JAR) TOP SCH (09:36)
[2019-05-30] MEDS: LORATADINE 10 MG TAB GTB SCH (09:36)
[2019-05-30] MEDS: PHENOBARBITAL 32.4 MG TAB GTB SCH ×2 (09:36→22:06)
[2019-05-30] MEDS: TOLTERODINE 2 MG TAB GTB SCH ×2 (09:36→22:06)
[2019-05-30] MEDS: ZONISAMIDE 100 MG CAP GTB SCH ×3 (09:36→22:07)
[2019-05-30] MEDS: LORAZEPAM 0.5 MG TAB GTB SCH ×2 (09:36→22:07)
[2019-05-30] MEDS: DOCUSATE SODIUM 10 MG/ML (10ML CUP) GTB SCH ×2 (09:36→22:00)
[2019-05-30] MEDS: THIAMINE 100 MG TAB GTB SCH (09:37)
[2019-05-30] MEDS: FUROSEMIDE 40 MG INJ IV SCH (09:37)
[2019-05-30] MEDS: ASCORBIC ACID 500 MG TAB GTB SCH (09:37)
[2019-05-30] MEDS: ZINC SULFATE 220 MG CAP GTB SCH (09:37)
[2019-05-30] MEDS: MUPIROCIN 2% 22 GM OINT TOP SCH ×2 (09:38→22:08)
[2019-05-30] MEDS: morphine LIQ (10 MG/5 ML) CUP PO PRN ×2 (16:24→22:29)
[2019-05-30] MEDS ORDERED: LACTULOSE 30ML CUP GTB ONE (20:00)
[2019-05-30] MEDS: LACTOBACILLUS RHAMNOSUS CAP GTB SCH (22:20)
[2019-05-31] VITALS (19 sets, daily range): BP systolic 76–127; BP diastolic 51–69; PULSE 65–88; RESP 14–25
[2019-05-31] MEDS: IPRATROPIUM (HFA) 12.9 GM INHALER INH SCH ×4 (01:19→20:01)
[2019-05-31] MEDS: CLINDAMYCIN 900 MG (PMX) 50 ML IVPB SCH (05:54)
[2019-05-31] MEDS: GABAPENTIN 300 MG/6 ML GTB SCH ×3 (05:55→21:31)
[2019-05-31] MEDS: BACLOFEN 10 MG TAB GTB SCH ×3 (05:55→21:32)
[2019-05-31] MEDS: morphine LIQ (10 MG/5 ML) CUP PO PRN ×3 (06:56→16:43)
[2019-05-31] MEDS: DOCUSATE SODIUM 10 MG/ML (10ML CUP) GTB SCH (08:09)
[2019-05-31] MEDS: COLLAGENASE 5 GM (UD JAR) TOP SCH (08:09)
[2019-05-31] MEDS: LORAZEPAM 0.5 MG TAB GTB SCH ×2 (08:10→21:31)
[2019-05-31] MEDS: PHENOBARBITAL 32.4 MG TAB GTB SCH ×2 (08:10→21:31)
[2019-05-31] MEDS: CASPOFUNGIN 50 MG in SOD CHLORIDE 0.9% 250 ML IVPB SCH (08:10)
[2019-05-31] MEDS: TOLTERODINE 2 MG TAB GTB SCH ×2 (08:10→21:32)
[2019-05-31] MEDS: LORATADINE 10 MG TAB GTB SCH (08:11)
[2019-05-31] MEDS: ASCORBIC ACID 500 MG TAB GTB SCH (08:11)
[2019-05-31] MEDS: ZINC SULFATE 220 MG CAP GTB SCH (08:11)
[2019-05-31] MEDS: ZONISAMIDE 100 MG CAP GTB SCH ×3 (08:11→21:31)
[2019-05-31] MEDS: THIAMINE 100 MG TAB GTB SCH (08:11)
[2019-05-31] MEDS: LACTOBACILLUS RHAMNOSUS CAP GTB SCH ×2 (08:11→21:31)
[2019-05-31] MEDS: MUPIROCIN 2% 22 GM OINT TOP SCH ×2 (08:12→21:32)
[2019-05-31] MEDS: FUROSEMIDE 40 MG INJ IV SCH (08:15)
[2019-05-31] MEDS ORDERED: MINERAL OIL 133 ML ENEMA PR ONE (11:00)
[2019-05-31] MEDS: ZYVOX 600 MG TAB PO SCH ×2 (12:57→21:31)
[2019-06-01] VITALS (25 sets, daily range): BP systolic 89–123; BP diastolic 51–77; PULSE 63–73; RESP 14–22
[2019-06-01] MEDS: IPRATROPIUM (HFA) 12.9 GM INHALER INH SCH ×4 (01:04→21:50)
[2019-06-01] MEDS: GABAPENTIN 300 MG/6 ML GTB SCH ×2 (05:38→13:17)
[2019-06-01] MEDS: BACLOFEN 10 MG TAB GTB SCH ×3 (05:38→21:46)
[2019-06-01] MEDS: morphine LIQ (10 MG/5 ML) CUP PO PRN (05:39)
[2019-06-01] MEDS: PHENOBARBITAL 32.4 MG TAB GTB SCH ×2 (09:23→21:46)
[2019-06-01] MEDS: LORAZEPAM 0.5 MG TAB GTB SCH ×2 (09:23→21:46)
[2019-06-01] MEDS: CASPOFUNGIN 50 MG in SOD CHLORIDE 0.9% 250 ML IVPB SCH (09:23)
[2019-06-01] MEDS: THIAMINE 100 MG TAB GTB SCH (09:23)
[2019-06-01] MEDS: ZONISAMIDE 100 MG CAP GTB SCH ×3 (09:23→21:46)
[2019-06-01] MEDS: SENNA/DOCUSATE NA (8.6MG/50MG) TAB GTB SCH (09:23)
[2019-06-01] MEDS: ZYVOX 600 MG TAB PO SCH ×2 (09:23→21:46)
[2019-06-01] MEDS: ASCORBIC ACID 500 MG TAB GTB SCH (09:23)
[2019-06-01] MEDS: ZINC SULFATE 220 MG CAP GTB SCH (09:24)
[2019-06-01] MEDS: LACTOBACILLUS RHAMNOSUS CAP GTB SCH ×2 (09:24→21:46)
[2019-06-01] MEDS: TOLTERODINE 2 MG TAB GTB SCH ×2 (09:24→21:46)
[2019-06-01] MEDS: FUROSEMIDE 40 MG INJ IV SCH (09:32)
[2019-06-01] MEDS: COLLAGENASE 5 GM (UD JAR) TOP SCH (09:34)
[2019-06-01] MEDS: MUPIROCIN 2% 22 GM OINT TOP SCH (09:34)
[2019-06-01] MEDS: ACETAMINOPHEN 650MG/20.3ML CUP GTB PRN (13:17)
[2019-06-01] MEDS ORDERED: SOD CHLORIDE 0.9% 500 ML IV ONE ×2 (15:30→20:30)
[2019-06-01] MEDS: TOBRAMYCIN/0.25NS 300 MG/5 ML INHAL NEB SCH (21:50)
[2019-06-02] VITALS (35 sets, daily range): BP systolic 84–123; BP diastolic 44–76; PULSE 74–106; RESP 13–27
[2019-06-02] MEDS: MUPIROCIN 2% 22 GM OINT TOP SCH ×3 (00:38→21:50)
[2019-06-02] MEDS: IPRATROPIUM (HFA) 12.9 GM INHALER INH SCH ×4 (02:24→19:39)
[2019-06-02] MEDS: BACLOFEN 10 MG TAB GTB SCH ×3 (05:29→21:46)
[2019-06-02] MEDS: MAGNESIUM HYDROXIDE 30ML CUP GTB PRN (05:29)
[2019-06-02] MEDS: GABAPENTIN (50 MG/ML PO SYG) GTB SCH ×3 (05:30→21:45)
[2019-06-02] MEDS: ZONISAMIDE 100 MG CAP GTB SCH ×3 (08:23→21:47)
[2019-06-02] MEDS: LACTOBACILLUS RHAMNOSUS CAP GTB SCH ×2 (08:23→21:47)
[2019-06-02] MEDS: TOLTERODINE 2 MG TAB GTB SCH ×2 (08:23→21:46)
[2019-06-02] MEDS: PHENOBARBITAL 32.4 MG TAB GTB SCH ×2 (08:23→21:46)
[2019-06-02] MEDS: LORAZEPAM 0.5 MG TAB GTB SCH ×2 (08:23→21:47)
[2019-06-02] MEDS: COLLAGENASE 5 GM (UD JAR) TOP SCH (08:23)
[2019-06-02] MEDS: SENNA/DOCUSATE NA (8.6MG/50MG) TAB GTB SCH (08:24)
[2019-06-02] MEDS: ASCORBIC ACID 500 MG TAB GTB SCH (08:24)
[2019-06-02] MEDS: ZINC SULFATE 220 MG CAP GTB SCH (08:24)
[2019-06-02] MEDS: THIAMINE 100 MG TAB GTB SCH (08:24)
[2019-06-02] MEDS: ZYVOX 600 MG TAB PO SCH ×2 (08:24→21:47)
[2019-06-02] MEDS ORDERED: ASPIRIN 81 MG TAB PO SCH (09:00)
[2019-06-02] MEDS: CASPOFUNGIN 50 MG in SOD CHLORIDE 0.9% 250 ML IVPB SCH (09:50)
[2019-06-02] MEDS: TOBRAMYCIN/0.25NS 300 MG/5 ML INHAL NEB SCH (10:27)
[2019-06-02] MEDS ORDERED: TOBRAMYCIN IV PER PHARMACY XX SCH (12:30)
[2019-06-02] MEDS: DEXTROSE 5% IVPB SCH (15:12)
[2019-06-02] MEDS: TOBRAMYCIN IVPB SCH (15:12)
[2019-06-03] VITALS (35 sets, daily range): BP systolic 100–144; BP diastolic 59–85; PULSE 74–103; RESP 13–27
[2019-06-03] MEDS: IPRATROPIUM (HFA) 12.9 GM INHALER INH SCH ×4 (01:38→19:26)
[2019-06-03] MEDS: BACLOFEN 10 MG TAB GTB SCH ×3 (06:27→21:40)
[2019-06-03] MEDS: GABAPENTIN (50 MG/ML PO SYG) GTB SCH ×3 (06:27→21:42)
[2019-06-03] MEDS: TOLTERODINE 2 MG TAB GTB SCH ×2 (08:35→21:39)
[2019-06-03] MEDS: ASPIRIN 81 MG TAB PO SCH (08:35)
[2019-06-03] MEDS: CASPOFUNGIN 50 MG in SOD CHLORIDE 0.9% 250 ML IVPB SCH (08:35)
[2019-06-03] MEDS: LACTOBACILLUS RHAMNOSUS CAP GTB SCH ×2 (08:35→21:39)
[2019-06-03] MEDS: PHENOBARBITAL 32.4 MG TAB GTB SCH ×2 (08:36→21:40)
[2019-06-03] MEDS: ZONISAMIDE 100 MG CAP GTB SCH ×3 (08:36→21:40)
[2019-06-03] MEDS: ZINC SULFATE 220 MG CAP GTB SCH (08:36)
[2019-06-03] MEDS: ZYVOX 600 MG TAB PO SCH ×2 (08:36→21:40)
[2019-06-03] MEDS: ASCORBIC ACID 500 MG TAB GTB SCH (08:36)
[2019-06-03] MEDS: THIAMINE 100 MG TAB GTB SCH (08:36)
[2019-06-03] MEDS: LORAZEPAM 0.5 MG TAB GTB SCH ×2 (08:38→21:39)
[2019-06-03] MEDS: MUPIROCIN 2% 22 GM OINT TOP SCH ×2 (08:38→21:40)
[2019-06-03] MEDS: SENNA/DOCUSATE NA (8.6MG/50MG) TAB GTB SCH (08:38)
[2019-06-03] MEDS: COLLAGENASE 5 GM (UD JAR) TOP SCH (08:39)
[2019-06-03] MEDS: TOBRAMYCIN IVPB SCH (14:08)
[2019-06-03] MEDS: DEXTROSE 5% IVPB SCH (14:08)
[2019-06-03] MEDS ORDERED: AMIKACIN IV PER PHARMACY XX SCH (14:30)
[2019-06-03] MEDS: LORAZEPAM 0.5 MG TAB PO PRN (15:27)
[2019-06-03] MEDS ORDERED: AMIKACIN 500 MG INJ INH SCH (17:00)
[2019-06-03] MEDS ORDERED: IBUPROFEN 600 MG TAB GTB SCH (18:00)
[2019-06-04] VITALS (35 sets, daily range): BP systolic 87–140; BP diastolic 50–83; PULSE 49–97; RESP 12–25
[2019-06-04] MEDS: morphine LIQ (10 MG/5 ML) CUP PO PRN ×3 (00:08→21:25)
[2019-06-04] MEDS: IBUPROFEN 600 MG TAB GTB SCH ×5 (00:08→23:24)
[2019-06-04] MEDS: IPRATROPIUM (HFA) 12.9 GM INHALER INH SCH ×4 (02:19→20:57)
[2019-06-04] MEDS ORDERED: SOD CHLORIDE 0.9% 500 ML IV ONE (06:00)
[2019-06-04] MEDS: GABAPENTIN (50 MG/ML PO SYG) GTB SCH ×3 (06:23→21:18)
[2019-06-04] MEDS: BACLOFEN 10 MG TAB GTB SCH ×3 (06:23→21:18)
[2019-06-04] MEDS: ASPIRIN 81 MG TAB PO SCH (08:27)
[2019-06-04] MEDS: COLLAGENASE 5 GM (UD JAR) TOP SCH ×2 (08:27→13:52)
[2019-06-04] MEDS: LACTOBACILLUS RHAMNOSUS CAP GTB SCH ×2 (08:27→21:18)
[2019-06-04] MEDS: TOLTERODINE 2 MG TAB GTB SCH ×2 (08:28→21:19)
[2019-06-04] MEDS: THIAMINE 100 MG TAB GTB SCH (08:28)
[2019-06-04] MEDS: ASCORBIC ACID 500 MG TAB GTB SCH (08:29)
[2019-06-04] MEDS: LORAZEPAM 0.5 MG TAB GTB SCH ×2 (08:29→21:19)
[2019-06-04] MEDS: SENNA/DOCUSATE NA (8.6MG/50MG) TAB GTB SCH (08:29)
[2019-06-04] MEDS: ZYVOX 600 MG TAB PO SCH ×2 (08:29→21:18)
[2019-06-04] MEDS: PHENOBARBITAL 32.4 MG TAB GTB SCH ×2 (08:30→21:19)
[2019-06-04] MEDS: ZINC SULFATE 220 MG CAP GTB SCH (08:30)
[2019-06-04] MEDS: ZONISAMIDE 100 MG CAP GTB SCH ×3 (08:30→21:18)
[2019-06-04] MEDS: MUPIROCIN 2% 22 GM OINT TOP SCH ×2 (08:30→21:24)
[2019-06-04] MEDS: CASPOFUNGIN 50 MG in SOD CHLORIDE 0.9% 250 ML IVPB SCH ×2 (09:00→10:09)
[2019-06-04] MEDS ORDERED: AMIKACIN IV SCH (14:00)
[2019-06-04] MEDS ORDERED: SOD CHLORIDE 0.9% IV SCH (14:00)
[2019-06-04] MEDS: LORAZEPAM 0.5 MG TAB PO PRN (23:24)
[2019-06-05] VITALS (37 sets, daily range): BP systolic 91–107; BP diastolic 44–71; PULSE 58–91; RESP 14–24
[2019-06-05] MEDS: IPRATROPIUM (HFA) 12.9 GM INHALER INH SCH ×4 (01:12→20:12)
[2019-06-05] MEDS: BACLOFEN 10 MG TAB GTB SCH ×3 (05:05→21:13)
[2019-06-05] MEDS: GABAPENTIN (50 MG/ML PO SYG) GTB SCH ×3 (05:05→21:13)
[2019-06-05] MEDS: IBUPROFEN 600 MG TAB GTB SCH ×3 (05:06→17:54)
[2019-06-05] MEDS: ZINC SULFATE 220 MG CAP GTB SCH (08:00)
[2019-06-05] MEDS: ZONISAMIDE 100 MG CAP GTB SCH ×3 (08:00→20:32)
[2019-06-05] MEDS: LACTOBACILLUS RHAMNOSUS CAP GTB SCH ×2 (08:01→20:31)
[2019-06-05] MEDS: PHENOBARBITAL 32.4 MG TAB GTB SCH ×2 (08:01→21:12)
[2019-06-05] MEDS: TOLTERODINE 2 MG TAB GTB SCH ×2 (08:01→20:32)
[2019-06-05] MEDS: ASPIRIN 81 MG TAB PO SCH (08:02)
[2019-06-05] MEDS: ZYVOX 600 MG TAB PO SCH ×2 (08:02→20:31)
[2019-06-05] MEDS: SENNA/DOCUSATE NA (8.6MG/50MG) TAB GTB SCH (08:02)
[2019-06-05] MEDS: ASCORBIC ACID 500 MG TAB GTB SCH (08:02)
[2019-06-05] MEDS: THIAMINE 100 MG TAB GTB SCH (08:03)
[2019-06-05] MEDS: COLLAGENASE 5 GM (UD JAR) TOP SCH ×2 (08:07→11:52)
[2019-06-05] MEDS: MUPIROCIN 2% 22 GM OINT TOP SCH ×2 (08:07→20:33)
[2019-06-05] MEDS: LORAZEPAM 0.5 MG TAB GTB SCH ×2 (08:11→20:31)
[2019-06-05] MEDS: CASPOFUNGIN 50 MG in SOD CHLORIDE 0.9% 250 ML IVPB SCH (08:18)
[2019-06-05] MEDS ORDERED: AMIKACIN IV SCH (14:00)
[2019-06-05] MEDS ORDERED: SOD CHLORIDE 0.9% IV SCH (14:00)
[2019-06-05] MEDS: morphine LIQ (10 MG/5 ML) CUP PO PRN ×2 (17:58→22:23)
[2019-06-05] MEDS: MAGNESIUM HYDROXIDE 30ML CUP GTB PRN (22:26)
[2019-06-06] VITALS (35 sets, daily range): BP systolic 87–149; BP diastolic 41–95; PULSE 58–84; RESP 13–26
[2019-06-06] MEDS: IPRATROPIUM (HFA) 12.9 GM INHALER INH SCH ×4 (01:49→20:00)
[2019-06-06] MEDS: LORAZEPAM 0.5 MG TAB PO PRN (02:37)
[2019-06-06] MEDS: AMIKACIN IV SCH (05:46)
[2019-06-06] MEDS: IBUPROFEN 600 MG TAB GTB SCH ×4 (05:46→18:22)
[2019-06-06] MEDS: SOD CHLORIDE 0.9% IV SCH (05:46)
[2019-06-06] MEDS: BACLOFEN 10 MG TAB GTB SCH ×3 (05:46→22:15)
[2019-06-06] MEDS: GABAPENTIN (50 MG/ML PO SYG) GTB SCH ×3 (05:46→22:15)
[2019-06-06] MEDS ORDERED: NA PHOSPHATE/BIPHOS 133 ML ENEMA PR ONE (07:30)
[2019-06-06] MEDS: COLLAGENASE 5 GM (UD JAR) TOP SCH (09:14)
[2019-06-06] MEDS: LORAZEPAM 0.5 MG TAB GTB SCH ×2 (09:15→20:28)
[2019-06-06] MEDS: TOLTERODINE 2 MG TAB GTB SCH ×2 (09:15→20:29)
[2019-06-06] MEDS: SENNA/DOCUSATE NA (8.6MG/50MG) TAB GTB SCH (09:15)
[2019-06-06] MEDS: ZONISAMIDE 100 MG CAP GTB SCH ×3 (09:15→20:42)
[2019-06-06] MEDS: ZYVOX 600 MG TAB PO SCH ×2 (09:16→20:28)
[2019-06-06] MEDS: ZINC SULFATE 220 MG CAP GTB SCH (09:16)
[2019-06-06] MEDS: ASCORBIC ACID 500 MG TAB GTB SCH (09:16)
[2019-06-06] MEDS: LACTOBACILLUS RHAMNOSUS CAP GTB SCH ×2 (09:16→20:28)
[2019-06-06] MEDS: THIAMINE 100 MG TAB GTB SCH (09:16)
[2019-06-06] MEDS: POLYETHYLENE GLYCOL 17 GM PACKET GTB SCH ×2 (09:17→20:29)
[2019-06-06] MEDS: MUPIROCIN 2% 22 GM OINT TOP SCH (09:17)
[2019-06-06] MEDS: CASPOFUNGIN 50 MG in SOD CHLORIDE 0.9% 250 ML IVPB SCH (10:11)
[2019-06-06] MEDS: PHENOBARBITAL 32.4 MG TAB GTB SCH ×2 (10:11→20:30)
[2019-06-06] MEDS: morphine LIQ (10 MG/5 ML) CUP PO PRN (20:55)
[2019-06-07] VITALS (27 sets, daily range): BP systolic 107–127; BP diastolic 59–84; PULSE 52–81; RESP 8–26
[2019-06-07] MEDS: IBUPROFEN 600 MG TAB GTB SCH ×4 (00:09→18:00)
[2019-06-07] MEDS: IPRATROPIUM (HFA) 12.9 GM INHALER INH SCH ×4 (01:58→20:00)
[2019-06-07] MEDS: LORAZEPAM 0.5 MG TAB PO PRN (05:11)
[2019-06-07] MEDS: BACLOFEN 10 MG TAB GTB SCH ×3 (05:11→21:33)
[2019-06-07] MEDS: GABAPENTIN (50 MG/ML PO SYG) GTB SCH ×3 (05:12→21:35)
[2019-06-07] MEDS: morphine LIQ (10 MG/5 ML) CUP PO PRN ×2 (06:17→13:54)
[2019-06-07] MEDS: ZONISAMIDE 100 MG CAP GTB SCH ×3 (08:22→21:33)
[2019-06-07] MEDS: ZYVOX 600 MG TAB PO SCH ×2 (08:22→21:33)
[2019-06-07] MEDS: CASPOFUNGIN 50 MG in SOD CHLORIDE 0.9% 250 ML IVPB SCH (08:22)
[2019-06-07] MEDS: POLYETHYLENE GLYCOL 17 GM PACKET GTB SCH ×2 (08:22→21:35)
[2019-06-07] MEDS: ASCORBIC ACID 500 MG TAB GTB SCH (08:22)
[2019-06-07] MEDS: SENNA/DOCUSATE NA (8.6MG/50MG) TAB GTB SCH (08:22)
[2019-06-07] MEDS: ZINC SULFATE 220 MG CAP GTB SCH (08:22)
[2019-06-07] MEDS: LACTOBACILLUS RHAMNOSUS CAP GTB SCH ×2 (08:23→21:35)
[2019-06-07] MEDS: PHENOBARBITAL 32.4 MG TAB GTB SCH ×2 (08:23→21:35)
[2019-06-07] MEDS: TOLTERODINE 2 MG TAB GTB SCH ×2 (08:23→21:33)
[2019-06-07] MEDS: LORAZEPAM 0.5 MG TAB GTB SCH ×2 (08:24→21:34)
[2019-06-07] MEDS: THIAMINE 100 MG TAB GTB SCH (08:24)
[2019-06-07] MEDS: COLLAGENASE 5 GM (UD JAR) TOP SCH (11:22)
[2019-06-07] MEDS ORDERED: GABAPENTIN (50 MG/ML PO SYG) GTB SCH (14:00)
[2019-06-07] MEDS: AMIKACIN IV SCH (17:52)
[2019-06-07] MEDS: SOD CHLORIDE 0.9% IV SCH (17:52)
[2019-06-08] MEDS: IPRATROPIUM (HFA) 12.9 GM INHALER INH SCH ×2 (01:59→20:10)
[2019-06-08] MEDS: LORAZEPAM 0.5 MG TAB PO PRN (02:54)
[2019-06-08 03:04] VITALS: BP 118/43; PULSE 72; RESP 12
[2019-06-08] MEDS: BACLOFEN 10 MG TAB GTB SCH ×3 (06:15→21:17)
[2019-06-08] MEDS: IBUPROFEN 600 MG TAB GTB SCH ×4 (06:15→17:47)
[2019-06-08] MEDS: GABAPENTIN (50 MG/ML PO SYG) GTB SCH ×3 (06:16→23:05)
[2019-06-08 07:44] VITALS: BP 108/57; PULSE 70; RESP 20
[2019-06-08] MEDS: POLYETHYLENE GLYCOL 17 GM PACKET GTB SCH ×2 (09:11→21:18)
[2019-06-08] MEDS: ZINC SULFATE 220 MG CAP GTB SCH (09:12)
[2019-06-08] MEDS: TOLTERODINE 2 MG TAB GTB SCH ×2 (09:12→21:17)
[2019-06-08] MEDS: SENNA/DOCUSATE NA (8.6MG/50MG) TAB GTB SCH (09:13)
[2019-06-08] MEDS: ZONISAMIDE 100 MG CAP GTB SCH ×3 (09:13→21:17)
[2019-06-08] MEDS: LORAZEPAM 0.5 MG TAB GTB SCH ×2 (09:13→21:18)
[2019-06-08] MEDS: ASCORBIC ACID 500 MG TAB GTB SCH (09:13)
[2019-06-08] MEDS: PHENOBARBITAL 32.4 MG TAB GTB SCH ×2 (09:13→21:17)
[2019-06-08] MEDS: ZYVOX 600 MG TAB PO SCH (09:13)
[2019-06-08] MEDS: LACTOBACILLUS RHAMNOSUS CAP GTB SCH ×2 (09:13→21:18)
[2019-06-08] MEDS: COLLAGENASE 5 GM (UD JAR) TOP SCH (09:15)
[2019-06-08] MEDS: THIAMINE 100 MG TAB GTB SCH (10:30)
[2019-06-08 11:43] VITALS: BP 128/78; PULSE 80; RESP 20
[2019-06-08 15:53] VITALS: BP 117/70; PULSE 88; RESP 20
[2019-06-08 20:00] VITALS: BP 125/59; PULSE 96; RESP 20
[2019-06-08] MEDS: morphine LIQ (10 MG/5 ML) CUP PO PRN (23:06)
[2019-06-08] MEDS ORDERED: IPRATROPIUM (NEB) 0.5 MG/2.5 ML AMP HHN PRN (23:30)
[2019-06-09] VITALS: BP 118/59; PULSE 89; RESP 20
[2019-06-09] MEDS: IBUPROFEN 600 MG TAB GTB SCH ×4 (00:43→18:21)
[2019-06-09] MEDS: IPRATROPIUM (HFA) 12.9 GM INHALER INH SCH (01:16)
[2019-06-09 04:00] VITALS: BP 114/55; PULSE 76; RESP 20
[2019-06-09] MEDS: GABAPENTIN (50 MG/ML PO SYG) GTB SCH ×2 (05:45→14:52)
[2019-06-09] MEDS: BACLOFEN 10 MG TAB GTB SCH ×2 (05:45→14:52)
[2019-06-09 07:17] VITALS: BP 129/82; PULSE 91; RESP 18
[2019-06-09] MEDS: POLYETHYLENE GLYCOL 17 GM PACKET GTB SCH (09:00)
[2019-06-09] MEDS: TOLTERODINE 2 MG TAB GTB SCH (09:07)
[2019-06-09] MEDS: LACTOBACILLUS RHAMNOSUS CAP GTB SCH (09:07)
[2019-06-09] MEDS: PHENOBARBITAL 32.4 MG TAB GTB SCH (09:08)
[2019-06-09] MEDS: ZONISAMIDE 100 MG CAP GTB SCH ×2 (09:08→14:52)
[2019-06-09] MEDS: THIAMINE 100 MG TAB GTB SCH (09:09)
[2019-06-09] MEDS: SENNA/DOCUSATE NA (8.6MG/50MG) TAB GTB SCH (09:09)
[2019-06-09] MEDS: ZINC SULFATE 220 MG CAP GTB SCH (09:09)
[2019-06-09] MEDS: LORAZEPAM 0.5 MG TAB GTB SCH (09:09)
[2019-06-09] MEDS: ASCORBIC ACID 500 MG TAB GTB SCH (09:09)
[2019-06-09 11:16] VITALS: BP 107/63; PULSE 85; RESP 16
[2019-06-09] MEDS: morphine LIQ (10 MG/5 ML) CUP PO PRN ×2 (11:35→18:22)
== END 2019-06-09 19:02 | disposition home health service (06) | DRG 314 ==
LOC: E/R 15:33 → ICU 18:59 → EDBEDREQSVC 19:00 → EDBEDREQTM 19:00 → ICU 21:02 → 6WM 05-21 02:39 → ICU 06-01 19:26 → 6WM 06-07 17:28
PROVIDERS: ADMIT Internal Medicine; ATTEND Internal Medicine
PROC: 5A1955Z Respiratory Ventilation, Greater than 96 Consecutive Hours (ICD-10-PCS; principal; 2019-05-17)
PROC: 06PY33Z Removal of Infusion Device from Lower Vein, Percutaneous Approach (ICD-10-PCS; 2019-05-22)
DX: T80.211A Bloodstream infection due to central venous catheter, initial encounter (principal); A41.9 Sepsis, unspecified organism; J96.21 Acute and chronic respiratory failure with hypoxia; R65.21 Severe sepsis with septic shock; G82.50 Quadriplegia, unspecified; J18.9 Pneumonia, unspecified organism; E87.1 Hypo-osmolality and hyponatremia; R64 Cachexia; E46 Unspecified protein-calorie malnutrition; N30.00 Acute cystitis without hematuria; G93.40 Encephalopathy, unspecified; G40.909 Epilepsy, unspecified, not intractable, without status epilepticus; G89.29 Other chronic pain; R13.10 Dysphagia, unspecified; D69.6 Thrombocytopenia, unspecified; D63.8 Anemia in other chronic diseases classified elsewhere; K59.00 Constipation, unspecified; B96.5 Pseudomonas (aeruginosa) (mallei) (pseudomallei) as the cause of diseases classified elsewhere; Z79.891 Long term (current) use of opiate analgesic; Z68.1 Body mass index [BMI] 19.9 or less, adult; Z16.24 Resistance to multiple antibiotics; Z93.0 Tracheostomy status; Z93.1 Gastrostomy status; Z22.322 Carrier or suspected carrier of Methicillin resistant Staphylococcus aureus
CPT/HCPCS: 36415; 36600; 70450; 70551; 71045; 72170; 73500; 74018; 80048; 80053; 80061; 80150; 80184; 80200; 80202; 81001; 82306; 82533; 82565; 82803; 82962; 83036; 83540; 83605; 83735; 84100; 84443; 84484; 84520; 85025; 85610; 85730; 86704; 86709; 86803; 87070; 87081; 87086; 87340; 92507; 92523; 92526; 93005; 94002; 94003; 94640; 95819; 96361; 96365; 96368; J0278; J1170; J1650; J1940; J2060; J3260; J3370; J3475; J3480; J7030; J7040; J7050; J7070; J7120; P9047